=== PATIENT | female | born 1990 | race Caucasian/White ===

== ENCOUNTER 2017-09-02 10:01 | Inpatient (IN) | payer OTHER ==
[~2017-09-02 10:01] MED LIST: OXYTOCIN 30 UNITS/LR 500 ML BAG IV
[2017-09-02] MEDS ORDERED: CEFAZOLIN 2 GM/50 ML (PMX) 50 ML IV (10:30)
[2017-09-02] MEDS ORDERED: CARBOPROST 250 MCG INJ IM ×2 (10:30→19:00)
[2017-09-02] MEDS ORDERED: OXYTOCIN 30 UNITS/LR 500 ML IV ×2 (10:30→19:00)
[2017-09-02] MEDS ORDERED: MISOPROSTOL 200 MCG TAB PR ×2 (10:30→19:00)
[2017-09-02] MEDS ORDERED: METHYLERGONOVINE 0.2 MG INJ IM ×2 (10:30→19:00)
[2017-09-02] MEDS: LACTATED RINGER'S 1,000 ML IV ×2 (10:35→12:11)
[2017-09-02 10:40] LABS: ADD MAN DIFF? NO
[2017-09-02 10:47] LABS: BASOPHILS % 0.3 % (0.0-2.0); EOSINOPHILS % 0.5 % (0.0-7.0); HEMATOCRIT 38.3 % (37.0-47.0); LYMPHOCYTES % 22.4 % (15.0-51.0); MEAN CORPUSCULAR HEMOGLOBIN 28.8 pg (29.0-33.0); MEAN CORPUSCULAR HGB CONC 33.9 g/dl (32.0-37.0); MEAN CORPUSCULAR VOLUME 84.9 fl (82.0-101.0); MEAN PLATELET VOLUME 10.2 fl (7.4-10.4); MONOCYTE # 0.6 10^3/ul (0.3-0.9); MONOCYTES % 6.7 % (0.0-11.0); NEUTROPHILS % 69.3 % (39.0-77.0); PLATELET COUNT 219 10^3/UL (140-415); RED BLOOD COUNT 4.51 10^6/ul (4.20-5.40); RED CELL DISTRIBUTION WIDTH 13.8 % (11.5-14.5)
[2017-09-02 10:47] LABS: WHITE BLOOD COUNT 8.7 10^3/ul (4.8-10.8)
[2017-09-02 11:08] LABS: INR 0.92; PROTIME 12.4 Sec (11.9-14.9)
[2017-09-02 11:09] LABS: PARTIAL THROMBOPLASTIN TIME 28.3 Sec (25.0-35.0)
[2017-09-02 12:26] LABS: HEPATITIS B SURFACE ANTIGEN NEGATIVE (NEGATIVE)
[2017-09-02] MEDS ORDERED: morphine SULFATE/PF (10 MG/10 ML) INJ (14:36)
[2017-09-02] MEDS ORDERED: FENTAnyl 50 MCG/ML VIAL (14:36)
[2017-09-02] MEDS ORDERED: DEXAMETHASONE 4 MG/ML 1 ML INJ (14:45)
[2017-09-02] MEDS ORDERED: ONDANSETRON 4 MG INJ (14:46)
[2017-09-02] MEDS ORDERED: PHENYLephrine 10 MG INJ (14:50)
[2017-09-02] MEDS ORDERED: ZOLPIDEM 5 MG TAB PO (16:00)
[2017-09-02] MEDS ORDERED: ONDANSETRON 4 MG INJ IV (16:00)
[2017-09-02] MEDS ORDERED: morphine 2 MG INJ IV (16:00)
[2017-09-02] MEDS ORDERED: DIPHENHYDRAMINE 50 MG INJ IV (16:00)
[2017-09-02] MEDS ORDERED: NALOXONE (0.4 MG/ML) INJ IV (16:00)
[2017-09-02] MEDS: OXYTOCIN 30 UNITS/LR 500 ML IV ×2 (17:01→22:43)
[2017-09-02 17:31] LABS: RAPID PLASMA REAGIN NONREACTIVE (NR)
[2017-09-02] MEDS: KETOROLAC 30 MG INJ IV ×2 (17:41→21:24)
[2017-09-02] MEDS ORDERED: OXYCODONE/ACETAMINOPHEN (5/325) TAB PO (19:00)
[2017-09-02] MEDS ORDERED: HYDROCODONE/APAP (5/325) TAB PO (19:00)
[2017-09-02] MEDS: CEFAZOLIN 1 GM/50 ML (PMX) 50 ML IVPB (19:43)
[2017-09-02] MEDS: SENNA/DOCUSATE NA (8.6MG/50MG) TAB PO (21:19)
[2017-09-03] MEDS: OXYTOCIN 30 UNITS/LR 500 ML IV ×7 (00:58→23:12)
[2017-09-03] MEDS: LACTATED RINGER'S 1,000 ML IV ×3 (02:21→23:12)
[2017-09-03] MEDS: KETOROLAC 30 MG INJ IV (06:22)
[2017-09-03] MEDS: SENNA/DOCUSATE NA (8.6MG/50MG) TAB PO ×2 (08:55→21:14)
[2017-09-03] MEDS: morphine 2 MG INJ IV (08:55)
[2017-09-03 09:19] LABS: ADD MAN DIFF? NO
[2017-09-03 09:24] LABS: BASOPHILS % 0.2 % (0.0-2.0); EOSINOPHILS # 0.1 10^3/ul (0.0-0.5); EOSINOPHILS % 0.5 % (0.0-7.0); HEMATOCRIT 31.7 % (37.0-47.0); HEMOGLOBIN 10.8 g/dl (12.0-16.0); LYMPHOCYTES # 2.7 10^3/ul (0.8-2.9); LYMPHOCYTES % 18.1 % (15.0-51.0); MEAN CORPUSCULAR HEMOGLOBIN 29.4 pg (29.0-33.0); MEAN CORPUSCULAR HGB CONC 34.1 g/dl (32.0-37.0); MEAN CORPUSCULAR VOLUME 86.4 fl (82.0-101.0); MEAN PLATELET VOLUME 10.6 fl (7.4-10.4); MONOCYTES % 6.8 % (0.0-11.0); NEUTROPHIL # 10.8 10^3/ul (1.6-7.5); NEUTROPHILS % 73.7 % (39.0-77.0); PLATELET COUNT 198 10^3/UL (140-415); RED BLOOD COUNT 3.67 10^6/ul (4.20-5.40); RED CELL DISTRIBUTION WIDTH 13.6 % (11.5-14.5)
[2017-09-03 09:24] LABS: WHITE BLOOD COUNT 14.6 10^3/ul (4.8-10.8)
[2017-09-03] MEDS: IBUPROFEN 600 MG TAB PO ×2 (17:38)
[2017-09-03] MEDS: OXYCODONE/ACETAMINOPHEN (5/325) TAB PO (21:15)
[2017-09-04] MEDS: IBUPROFEN 600 MG TAB PO ×4 (00:20→17:30)
[2017-09-04] MEDS: LACTATED RINGER'S 1,000 ML IV ×2 (02:21→10:21)
[2017-09-04] MEDS: OXYTOCIN 30 UNITS/LR 500 ML IV ×3 (02:43→10:43)
[2017-09-04] MEDS: LANOLIN 7 GM TUBE TOP (09:05)
[2017-09-04] MEDS: SENNA/DOCUSATE NA (8.6MG/50MG) TAB PO ×2 (09:05→21:15)
[2017-09-04] MEDS: HYDROCODONE/APAP (5/325) TAB PO (15:47)
[2017-09-05] MEDS: IBUPROFEN 600 MG TAB PO ×3 (00:34→12:00)
[2017-09-05] MEDS: DIPHTH/TET/ACEL PERTUSS (ADULT) 0.5 ML VIAL IM* (07:38)
[2017-09-05] MEDS: SENNA/DOCUSATE NA (8.6MG/50MG) TAB PO (09:00)
== END 2017-09-05 15:40 | disposition home or self-care (01) | DRG 766 ==
LOC: L-D 10:01 → PP1 17:59
PROVIDERS: Obstetrics & Gynecology
PROC: 10D00Z1 Extraction of Products of Conception, Low, Open Approach (ICD-10-PCS; principal; 2017-09-02 12:30)
PROC: 3E033VJ Introduction of Other Hormone into Peripheral Vein, Percutaneous Approach (ICD-10-PCS; 2017-09-02 12:30)
DX: O34.211 Maternal care for low transverse scar from previous cesarean delivery (principal); Z37.0 Single live birth; Z3A.39 39 weeks gestation of pregnancy
CPT/HCPCS: 85025; 85610; 85730; 86592; 86850; 86900; 86901; 87340; 94760; 99464